=== PATIENT | female | born 1990 | race African-American/Black ===

== ENCOUNTER 2018-06-24 12:45 | Emergency (ER) | payer MEDICAID ==
[~2018-06-24] VITALS: Ht 160 cm; Wt 61.0 kg
[2018-06-24 15:11] VITALS: BP 113/82
== END 2018-06-24 19:02 | disposition home or self-care (01) ==
LOC: ER 19:02
DX: S81.051A Open bite, right knee, initial encounter (principal); F17.200 Nicotine dependence, unspecified, uncomplicated; Z97.5 Presence of (intrauterine) contraceptive device; Y04.1XXA Assault by human bite, initial encounter; Y93.89 Activity, other specified; Y92.89 Other specified places as the place of occurrence of the external cause
CPT/HCPCS: 99283